=== PATIENT | male | born 1990 | race Caucasian/White ===

== ENCOUNTER 2017-04-11 17:28 | Emergency (ER) | payer OTHER, BC ==
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
== END 2017-04-11 18:57 | disposition home or self-care (01) ==
LOC: JD.ED 17:28
DX: J03.90 Acute tonsillitis, unspecified (principal)
CPT/HCPCS: 87081; 87430; 99283